=== PATIENT | female | born 1955 | race Caucasian/White ===

== ENCOUNTER → 2016-12-22 | Outpatient (CLI) | payer MEDICARE ==
--- NOTE | 2016-12-22 07:50 | US ---
EXAMINATION TYPE: US gallbladder DATE OF EXAM: 12/22/2016 COMPARISON: NONE CLINICAL HISTORY: R10.84 Generalized abdominal pain. EXAM MEASUREMENTS: Liver Length: 12.9 cm Gallbladder Wall: 0.1 cm CBD: 0.4 cm Right Kidney: 12.2 x 4.0 x 5.4 cm Pancreas: visualized portions wnl Liver: The liver is diffusely hyperechoic with poor visualization of the portal triads. There is walter e some fatty sparing noted near the ryland hepatis and gallbladder fossa, which is wedge-shaped. Gallbladder: No stones seen Evidence for sonographic Fairbanks's sign: No CBD: wnl Right Kidney: No hydronephrosis or masses seen IMPRESSION: 1. No evidence of cholelithiasis or sonographic evidence of cholecystitis. 2. Hepatic steatosis with focal fatty sparing near the gallbladder fossa and ryland hepatis.
== END | disposition home or self-care (01) ==
LOC: RADUSWWP 06:48
PROVIDERS: ATTEND Internal Medicine
DX: R10.84 Generalized abdominal pain (principal)
CPT/HCPCS: 76705

== ENCOUNTER → 2021-02-09 | Outpatient (CLI) | payer MEDICARE ==
--- NOTE | 2021-02-09 10:36 | XR ---
EXAMINATION TYPE: XR chest 2V DATE OF EXAM: 02/09/2021 COMPARISON: This x-ray 05/15/2014 HISTORY: Shortness of breath TECHNIQUE: Frontal and lateral views of the chest are obtained. FINDINGS: Somewhat diffuse interstitial and airspace disease is present on the right, possibly right middle lobe and right upper lobe. No pneumothorax or pleural effusion. Postop change noted to the ce rvical spine. Cardiomediastinal silhouette is stable, heart appears borderline enlarged. Aorta is den se. IMPRESSION: Correlate for pneumonia.
== END | disposition home or self-care (01) ==
LOC: RADXRWHC 09:48
PROVIDERS: ATTEND Internal Medicine
DX: R06.02 Shortness of breath (principal)
CPT/HCPCS: 71046

== ENCOUNTER 2021-05-11 14:17 | Emergency (ER) | payer MEDICARE ==
[2021-05-11 14:28] VITALS: BP 129/49; PULSE 51; RESP 18; TEMP 98.5
[2021-05-11] MEDS ORDERED: SODIUM CHLORIDE 0.9% 500 ML 500 ML IV STA (14:40)
[2021-05-11 15:00] LABS: Basophils # (A) 0.1 k/uL (0-0.2); Basophils % (A) 1 %; Eosinophils # (A) 0.3 k/uL (0-0.7); Eosinophils % (A) 3 %; HCT 38.1 % (34.0-46.0); HGB 12.4 gm/dL (11.4-16.0); Lymphocytes # (A) 1.7 k/uL (1.0-4.8); Lymphocytes % (A) 22 %; MCH 32.9 pg (25.0-35.0); MCHC 32.7 g/dL (31.0-37.0); MCV 100.9 fL (80.0-100.0); Mean Platelet Volume 8.1; Monocytes # (A) 0.8 k/uL (0-1.0); Monocytes % (A) 10 %; Neutrophils # (A) 4.9 k/uL (1.3-7.7); Neutrophils % (A) 62 %; Platelet Count 259 k/uL (150-450); RBC 3.77 m/uL (3.80-5.40)
--- NOTE | 2021-05-11 15:14 | ED ---
General Adult HPI - General Chief complaint: Neuro Symptoms/Deficit Stated complaint: Stroke Time Seen by Provider: 05/11/21 14:34 Source: patient, RN notes reviewed, old records reviewed Mode of arrival: ambulatory Limitations: no limitations - History of Present Illness Initial comments: 65-year-old female presenting from the glove examiner office with vision loss in the left eye. Patient was sent in for evaluation. Patient states that 2 days ago she lost vision in her left eye. Should see the glove examiner today who felt this was related to retinal occlusion. He sent the patient to the emergency department for stroke evaluation. The patient denies any symptoms in her right eye. She denies headache. She denies limb weakness or numbness. No previous history of TIA or CVA. - Related Data Home Medications Medication Instructions Recorded Confirmed FLUoxetine HCL [PROzac] 40 mg PO DAILY 12/01/13 02/10/17 HYDROcodone/APAP 10-325MG [[place] 1 each PO Q6H PRN 12/01/13 02/10/17 10-325] Ibuprofen [Motrin] 800 mg PO Q12HR PRN 12/01/13 02/10/17 LORazepam [Ativan] 0.5 mg PO HS 12/01/13 02/10/17 Simvastatin [Zocor] 40 mg PO HS 12/01/13 02/10/17 lisinopriL [Zestril] 20 mg PO DAILY 12/01/13 02/10/17 Gabapentin [Neurontin] 100 mg PO TID PRN 11/15/14 02/10/17 Meclizine [Antivert] 25 mg PO QID PRN 02/09/17 02/10/17 Metoprolol Tartrate [Lopressor] 12.5 mg PO DAILY 02/09/17 02/10/17 Allergies Allergy/AdvReac Type Severity Reaction Status Date / Time No Known Allergies Allergy Verified 05/11/21 14:24 Review of Systems ROS Statement: Those systems with pertinent positive or pertinent negative responses have been documented in the HPI. ROS Other: All systems not noted in ROS Statement are negative. Past Medical History Past Medical History: CVA/TIA, Hyperlipidemia, Hypertension History of Any Multi-Drug Resistant Organisms: None Reported Past Surgical History: Appendectomy, Tubal Ligation Additional Past Surgical History / Comment(s): 4 DISC FUSION IN NECK, RUPTURED DISK IN lUMBAR AREA. Past Psychological History: Depression Past Alcohol Use History: None Reported Past Drug Use History: None Reported General Exam Limitations: no limitations General appearance: alert, in no apparent distress Head exam: Present: atraumatic, normocephalic Eye exam: Present: other (Pupils are 7 mm bilaterally and sluggish.) Neck exam: Present: normal inspection. Absent: tenderness, meningismus Respiratory exam: Present: normal lung sounds bilaterally. Absent: respiratory distress, wheezes Cardiovascular Exam: Present: regular rate, normal rhythm GI/Abdominal exam: Present: soft. Absent: distended, tenderness, guarding, rebound Extremities exam: Present: normal inspection, normal capillary refill. Absent: pedal edema Neurological exam: Present: alert, oriented X3, CN II-XII intact. Absent: motor sensory deficit Psychiatric exam: Present: normal affect, normal mood Skin exam: Present: warm, dry, intact. Absent: cyanosis, diaphoretic Course Vital Signs 05/11/21 14:24 Temperature 98.5 F Pulse Rate 51 L Respiratory 18 Rate Blood Pressure 129/49 O2 Sat by Pulse 98 Oximetry Medical Decision Making - Medical Decision Making 65-year-old female with present with 2 days of vision loss in the left eye, symptom for stroke evaluation. CT of the brain is performed which is negative for intracranial hemorrhage or mass effect, shows some chronic atrophy. CT angiography showing 50% narrowing of the left ICA and 20% on the right. No intracranial occlusion or stenosis or aneurysm. Patient has normal CBC, normal CMP, negative troponin, EKG is sinus rhythm without ST segment elevation. I did speak to the neurologist and the admitting physician Dr. Farfan and Dr. Moise in order to arrange for admission and neurology consultation. However the patient had preferred outpatient workup. I again discussed case with the primary care physician Dr. Moise who will arrange for further evaluation and treatment on an outpatient basis. The patient will take a daily aspirin. The patient has not had Covid and has not had coronavirus vaccine and does not want to stay in the hospital. - Lab Data Result diagrams: 05/11/21 14:47 Lab Results 05/11/21 05/11/21 05/11/21 Range/Units 14:47 14:47 14:47 WBC 8.0 (3.8-10.6) k/uL RBC 3.77 L (3.80-5.40) m/uL Hgb 12.4 (11.4-16.0) gm/dL Hct 38.1 (34.0-46.0) % MCV 100.9 H (80.0-100.0) fL MCH 32.9 (25.0-35.0) pg MCHC 32.7 (31.0-37.0) g/dL RDW 13.0 (11.5-15.5) % Plt Count 259 (150-450) k/uL MPV 8.1 Neutrophils % 62 % Lymphocytes % 22 % Monocytes % 10 % Eosinophils % 3 % Basophils % 1 % Neutrophils # 4.9 (1.3-7.7) k/uL Lymphocytes # 1.7 (1.0-4.8) k/uL Monocytes # 0.8 (0-1.0) k/uL Eosinophils # 0.3 (0-0.7) k/uL Basophils # 0.1 (0-0.2) k/uL PT 9.5 (9.0-12.0) sec INR 0.9 (<1.2) APTT 21.6 L (22.0-30.0) sec Troponin I <0.012 (0.000-0.034) ng/mL Disposition Clinical Impression: Vision loss, left eye Disposition: HOME SELF-CARE Condition: Fair Instructions (If sedation given, give patient instructions): Ischemic Stroke (DC), Transient Ischemic Attack (ED) Additional Instructions: Please take daily aspirin. Please follow up with her primary care physician tomorrow. Is patient prescribed a controlled substance at d/c from ED?: No Referrals: Abby Moise MD [Primary Care Provider] - 1-2 days
[2021-05-11 15:18] LABS: INR 0.9 (<1.2); Partial Thromboplastin Time 21.6 sec (22.0-30.0); Prothrombin Time 9.5 sec (9.0-12.0)
--- NOTE | 2021-05-11 15:27 | CT ---
EXAMINATION TYPE: CT brain wo con DATE OF EXAM: 05/11/2021 HISTORY: Left eye vision loss. CT DLP: 1092.6 mGycm. Automated Exposure Control for Dose Reduction was Utilized. TECHNIQUE: CT scan of the head is performed without contrast. COMPARISON: CT brain December 01, 2013 FINDINGS: There is no acute intracranial hemorrhage or midline shift identified. There is mild diff use ventricular and sulcal prominence consistent with diffuse age-related cerebral atrophy. There is mild to moderate low-attenuation in the periventricular white matter which is nonspecific finding re demonstrated. The globes are intact and the visualized sinuses are clear. IMPRESSION: No acute intracranial hemorrhage or midline shift. There is mild diffuse age-related ce rebral atrophy and probable mild to moderate chronic small vessel ischemic change redemonstrated. Bot h findings slightly more prominent from 2014 study.
[2021-05-11] MEDS ORDERED: ASPIRIN 325 MG TAB PO STA (15:28)
[2021-05-11] MEDS ORDERED: SODIUM CHLORIDE 0.9% 1,000 ML IV SCH (15:30)
[2021-05-11 15:32] LABS: Albumin 4.1 g/dL (3.5-5.0); Calcium 9.3 mg/dL (8.4-10.2); Total Bilirubin 0.3 mg/dL (0.2-1.3); Total Protein 6.5 g/dL (6.3-8.2)
--- NOTE | 2021-05-11 15:41 | CT ---
EXAMINATION TYPE: CT angio head neck DATE OF EXAM: 05/11/2021 COMPARISON: CT brain same day HISTORY: 65-year-old female acute neurologic deficit, stroke suspected, Left eye vision loss. TECHNIQUE: Contiguous axial scanning of the head and neck performed with IV Contrast, patient injecte d with 65 mL of Isovue 370. Coronal/sagittal MIP reconstructions performed. 3-D reconstructions gener ated on a dedicated workstation. CT DLP: 679.8 mGycm Automated exposure control for dose reduction was used. FINDINGS: NECK: Moderate atherosclerotic arch calcifications. Conventional branching anatomy. Mild atherosclerotic na rrowing at the origin of the left subclavian artery. Possible moderate narrowing at the origin of the nondominant left vertebral artery. Vertebral arteries are otherwise patent throughout the course. The right common carotid artery is patent. Mild atherosclerotic calcifications of the right carotid bifurcation. Minimal, less than 20% narrowin g possible right ICA by NASCET criteria. Remainder of the right ICA is patent. Scattered mild plaque and calcification throughout the left common carotid artery. Moderate atherosclerotic change left carotid bifurcation with borderline moderate 50% proximal left I CA stenosis, refer to curved left internal carotid artery rotational reconstruction image 6. NASCET criteria was utilized. Remainder of the left ICA is patent. Punctate calcification bilateral palatine tonsils suggests sequela of prior infection. ACDF hardware. Some surgical clips along the right midline aspect of the neck. Minimal emphysematous change of the visualized upper lungs. HEAD: Dominant right vertebral artery. The V4 segment left vertebral artery becomes even more hypoplastic a fter the takeoff of the PICA branch. Basilar artery is patent as is the remainder of the posterior circulation. Mild atherosclerotic calcifications throughout the bilateral carotid siphons without significant narr owing. Slightly hypoplastic A1 segment right anterior cerebral artery. Remainder of the anterior circulatio n is patent. No aneurysmal change is identified. IMPRESSION: NECK: 1. Moderate atherosclerotic change at the left carotid bifurcation with borderline moderate, 50% prox imal left ICA stenosis. 2. Minimal, less than 20% narrowing proximal right ICA. 3. Mild atherosclerotic narrowing origin of the left subclavian artery. Moderate stenosis origin of t he nondominant left vertebral artery. HEAD: 4. No large vessel intracranial arterial occlusion, significant stenosis, or aneurysmal change is see n.
[2021-05-11 16:02] LABS: Potassium 3.8 mmol/L (3.5-5.1)
[2021-05-12] MEDS ORDERED: ASPIRIN 325 MG TAB PO SCH (09:00)
== END 2021-05-11 16:22 | disposition home or self-care (01) ==
LOC: EC 14:17
DX: H54.7 Unspecified visual loss (principal); E78.5 Hyperlipidemia, unspecified; I10 Essential (primary) hypertension; F32.A Depression, unspecified; Z86.73 Personal history of transient ischemic attack (TIA), and cerebral infarction without residual deficits; Z90.49 Acquired absence of other specified parts of digestive tract; Z98.51 Tubal ligation status
CPT/HCPCS: 99284; 36415; 93005; 80053; 84484; 85025; 85610; 85730; 70496; 70450; 70498; Q9967

== ENCOUNTER → 2021-05-20 | Outpatient (CLI) | payer MEDICARE ==
--- NOTE | 2021-05-21 10:55 | ECHOF ---
Referral Reason:I63.9 MEASUREMENTS -------- HEIGHT: 160.0 cm WEIGHT: 98.0 kg BP: RVIDd: 3.4 cm (< 3.3) IVSd: 1.2 cm (0.6 - 1.1) LVIDd: 4.7 cm (3.9 - 5.3) LVPWd: 1.0 cm (0.6 - 1.1) IVSs: 1.7 cm LVIDs: 2.7 cm LVPWs: 1.5 cm LAESV Index (A-L): 43.85 ml/m Ao Diam: 2.9 cm (2.0 - 3.7) AV Cusp: 1.7 cm (1.5 - 2.6) LA Diam: 4.0 cm (2.7 - 3.8) MV EXCURSION: 15.315 mm (> 18.000) MV EF SLOPE: 47 mm/s (70 - 150) EPSS: 0.4 cm MV E Scot: 1.52 m/s MV DecT: 239 ms MV A Scot: 0.93 m/s MV E/A Ratio: 1.63 RAP: 5.00 mmHg RVSP: 48.80 mmHg FINDINGS -------- Sinus rhythm. This was a technically adequate study. The left ventricular size is normal. There is mild concentric left ventricular hypertrophy. Overa ll left ventricular systolic function is normal with, an EF between 55 - 60 %. The right ventricle is mildly enlarged. LA is moderately dilated 34-39 ml/m2 The right atrium is mildly enlarged. Interatrial and interventricular septum intact. The aortic valve is trileaflet and appears structurally normal. There is mild aortic valve sclerosi s. There is no evidence of aortic regurgitation. There is no evidence of aortic stenosis. Mild mitral annular calcification present. Tjjv-ma-hauhlvxt mitral regurgitation is present. Tdxh-rz-kgznoawk tricuspid regurgitation present. There is mild to moderate pulmonary hypertension. The right ventricular systolic pressure, as measured by Doppler, is 48.80mmHg. There is no pulmonic regurgitation present. The aortic root size is normal. IVC Not well visulized. Echo free space represents a pericardial fat pad. There is no pericardial effusion. CONCLUSIONS -------- 1. The left ventricular size is normal. 2. There is mild concentric left ventricular hypertrophy. 3. Overall left ventricular systolic function is normal with, an EF between 55 - 60 %. 4. The right ventricle is mildly enlarged. 5. LA is moderately dilated 34-39 ml/m2 6. The right atrium is mildly enlarged. 7. There is mild aortic valve sclerosis. 8. Mild mitral annular calcification present. 9. Krxj-sp-fnozoujv mitral regurgitation is present. 10. Qtqy-hr-wehokvxm tricuspid regurgitation present. 11. There is mild to moderate pulmonary hypertension. 12. The right ventricular systolic pressure, as measured by Doppler, is 48.80mmHg. BARK SCALER: Claudine Matamoros RDCS
== END | disposition home or self-care (01) ==
LOC: RADECHMAIN 14:45
PROVIDERS: ATTEND Internal Medicine
DX: I08.3 Combined rheumatic disorders of mitral, aortic and tricuspid valves (principal); I27.20 Pulmonary hypertension, unspecified
CPT/HCPCS: 93306

== ENCOUNTER → 2022-01-15 | Outpatient (CLI) | payer MEDICARE ==
--- NOTE | 2022-01-18 08:13 | MM ---
Reason for Exam: Screening (asymptomatic). Last mammogram was performed 4 year(s) and 0 month(s) ago. Patient History: Menarche at age 11. First Full-Term at age 19. Postmenopausal. Progesterone for 4 months starting at age 57. Maternal cousin had breast cancer. Risk Values: Ayaka 5 year model risk: 1.5%. NCI Lifetime model risk: 5.2%. Prior Study Comparison: 12/20/2013 Bilateral Screening Mammogram, [facility]. 12/28/2013 Right Diagnostic Mammogram, [facility]. 04/14/2015 Bilateral Screening Mammogram, [facility]. 08/23/2016 Bilateral MG screening mammo w CAD - 2, [facility]. 01/02/2018 Bilateral MG screening mammo w CAD - 2, [facility]. Tissue Density: There are scattered fibroglandular densities. Findings: Analyzed By CAD. There is no suspicious group of microcalcifications or new suspicious mass in either breast. Stable benign-appearing calcifications. Overall Assessment: Benign, BI-RAD 2 Management: Screening Mammogram of both breasts in 1 year. A clinical breast exam by your physician is recommended on an annual basis and results should be correlated with mammographic findings. Electronically signed and approved by: Jozef Allen M.D. Radiologis
== END | disposition home or self-care (01) ==
LOC: RADMAMWWP 15:09
PROVIDERS: ATTEND Internal Medicine
DX: Z12.31 Encounter for screening mammogram for malignant neoplasm of breast (principal); Z78.0 Asymptomatic menopausal state; Z80.3 Family history of malignant neoplasm of breast
CPT/HCPCS: 77063; 77067

== ENCOUNTER → 2023-07-18 | Outpatient (CLI) | payer MEDICARE ==
--- NOTE | 2023-07-18 21:39 | US ---
EXAMINATION TYPE: US kidneys/renal and bladder DATE OF EXAM: 07/18/2023 COMPARISON: NONE CLINICAL INDICATION: Female, 67 years old with history of R94.4 ABNORMAL RENAL FUCTION TEST; abnormal renal function EXAM MEASUREMENTS: Right Kidney: 9.5 x 4.1 x 4.0 cm Left Kidney: 9.9 x 4.9 x 4.3 cm Right Kidney: No hydronephrosis or masses seen Left Kidney: No hydronephrosis or masses seen Bladder: anechoic. Urinary bladder diverticula may be within the right posterior urinary bladder. Bilateral Jets seen: Left only IMPRESSION: 1. Possible urinary bladder diverticulum. 2. Right ureteral jet not identified during this exam
--- NOTE | 2023-07-19 13:24 | MM ---
Reason for Exam: Screening (asymptomatic). Last mammogram was performed 1 year(s) and 6 month(s) ago. Patient History: Menarche at age 11. First Full-Term at age 19. Postmenopausal. Progesterone for 4 months starting at age 57. Maternal cousin had breast cancer, age 68. Risk Values: Ayaka 5 year model risk: 1.5%. NCI Lifetime model risk: 5.0%. Prior Study Comparison: 08/23/2016 Bilateral MG screening mammo w CAD - 2, [facility]. 01/02/2018 Bilateral MG screening mammo w CAD - 2, [facility]. 01/15/2022 Bilateral MG 3D screening mammo w/cad, [facility]. Tissue Density: The breast tissue is almost entirely fat. Findings: Analyzed By CAD. There is no suspicious group of microcalcifications or new suspicious mass. Benign-appearing calcifications bilaterally. Overall Assessment: Benign, BI-RAD 2 Management: Screening Mammogram of both breasts in [address] [facility] will attempt to contact patient to return for supplemental views and ultrasound if indicated. Patient should continue monthly self-breast exams. A clinical breast exam by your physician is recommended on an annual basis. This exam should not preclude additional follow-up of suspicious palpable abnormalities. Note on Ayaka scores and lifetime risk: 1. A Ayaka score greater than 3% is considered moderate risk. If this is the case, consider specialist referral to assess eligibility for a risk reducing agent. 2. If overall lifetime risk for the development of breast cancer is 20% or higher, the patient may qualify for future screening with alternating mammogram and breast MRI. Electronically signed and approved by: Sylvester Miller DO
== END | disposition home or self-care (01) ==
LOC: RADUSWWP 14:15
PROVIDERS: ATTEND Internal Medicine
DX: Z12.31 Encounter for screening mammogram for malignant neoplasm of breast (principal); R94.4 Abnormal results of kidney function studies; Z78.0 Asymptomatic menopausal state; Z80.3 Family history of malignant neoplasm of breast
CPT/HCPCS: 76770; 77063; 77067

== ENCOUNTER → 2024-11-07 | Outpatient (CLI) | payer MEDICARE ==
--- NOTE | 2024-11-07 15:24 | MM ---
Reason for Exam: Screening (asymptomatic). Last mammogram was performed 1 year(s) and 4 month(s) ago. Patient History: Menarche at age 11. First Full-Term at age 19. Postmenopausal. Progesterone for 4 months starting at age 57. Maternal cousin had breast cancer, age 68. Risk Values: Ayaka 5 year model risk: 1.5%. NCI Lifetime model risk: 4.5%. Prior Study Comparison: 01/02/2018 Bilateral MG screening mammo w CAD - 2, [facility]. 01/15/2022 Bilateral MG 3D screening mammo w/cad, [facility]. 07/18/2023 Bilateral MG 3D screening mammo w/cad, [facility]. Tissue Density: There are scattered areas of fibroglandular density. Findings: Analyzed By CAD. Faint benign secretory calcifications redemonstrated. There is no suspicious group of microcalcifications or new suspicious mass in either breast. Overall Assessment: Benign, BI-RAD 2 Management: Screening Mammogram of both breasts in 1 year. Patient should continue monthly self-breast exams. A clinical breast exam by your physician is recommended on an annual basis. This exam should not preclude additional follow-up of suspicious palpable abnormalities. Note on Ayaka scores and lifetime risk: 1. A Ayaka score greater than 3% is considered moderate risk. If this is the case, consider specialist referral to assess eligibility for a risk reducing agent. 2. If overall lifetime risk for the development of breast cancer is 20% or higher, the patient may qualify for future screening with alternating mammogram and breast MRI. [facility], , 11/07/2024 3:22 PM. Electronically signed and approved by: Orion Wilson M.D. Radiologist
== END | disposition home or self-care (01) ==
LOC: RADMAMWWP 14:22
PROVIDERS: ATTEND Internal Medicine
DX: Z12.31 Encounter for screening mammogram for malignant neoplasm of breast (principal); R92.323 Mammographic fibroglandular density, bilateral breasts; Z78.0 Asymptomatic menopausal state; Z80.3 Family history of malignant neoplasm of breast
CPT/HCPCS: 77063; 77067